=== PATIENT | female | born 1970 | race Caucasian/White ===

== ENCOUNTER 2018-02-28 12:22 | Day surgery (SDC) | payer MEDICARE, BC ==
[~2018-02-28 12:22] MED LIST: CEFAZOLIN 2 GM/50 ML (PMX) 50 ML IVPB; LACTATED RINGER'S 1,000 ML IV*
[2018-02-28] MEDS: INSULIN REGULAR, HUMAN 100 UNIT/1 ML 3ML VIAL SC (14:17)
[2018-02-28] MEDS ORDERED: FENTAnyl 50 MCG/ML VIAL (14:47)
[2018-02-28] MEDS ORDERED: MIDAZOLAM 1 MG/ML 2 ML INJ (14:47)
[2018-02-28] MEDS ORDERED: PROPOFOL 20 ML (14:47)
[2018-02-28] MEDS ORDERED: LIDOCAINE 1% (MPF) 10 ML INJ (14:56)
[2018-02-28] MEDS: ROPIVACAINE 0.5 % 30 ML VIAL (14:59)
[2018-02-28] MEDS ORDERED: METOCLOPRAMIDE 10 MG INJ IV (15:00)
[2018-02-28] MEDS ORDERED: MEPERIDINE 25 MG INJ IV (15:00)
[2018-02-28] MEDS ORDERED: MIDAZOLAM 1 MG/ML 2 ML INJ IV (15:00)
[2018-02-28] MEDS ORDERED: LABETALOL HCL 20MG INJ IV (15:00)
[2018-02-28] MEDS ORDERED: OXYCODONE/ACETAMINOPHEN (5/325) TAB PO ×3 (15:00→16:00)
[2018-02-28] MEDS ORDERED: EPHEDrine SULFATE 50 MG/5 ML SYG IV (15:00)
[2018-02-28] MEDS ORDERED: ONDANSETRON 4 MG INJ IV ×2 (15:00→16:00)
[2018-02-28] MEDS ORDERED: DIPHENHYDRAMINE 50 MG INJ IV (15:00)
[2018-02-28] MEDS ORDERED: FENTAnyl 50 MCG/ML VIAL IV ×3 (15:00)
[2018-02-28] MEDS ORDERED: hydrALAzine 20 MG INJ IV (15:00)
[2018-02-28] MEDS ORDERED: BACITRACIN 0.9 GM OINT (15:11)
[2018-02-28] MEDS ORDERED: CEFAZOLIN 1 GM INJ (15:11)
[2018-02-28] MEDS ORDERED: BACITRACIN/POLYMYXIN 28.35 GM OINT TOP (15:12)
[2018-02-28] MEDS ORDERED: LACTATED RINGER'S 1,000 ML IV (15:33)
[2018-02-28] MEDS ORDERED: HYDROCODONE/APAP (5/325) TAB PO (16:00)
[2018-02-28] MEDS ORDERED: PROCHLORPERAZINE 10 MG INJ IV (16:00)
[2018-02-28] MEDS ORDERED: KETOROLAC 30 MG INJ IV (16:00)
[2018-02-28] MEDS ORDERED: morphine 2 MG INJ IV (16:00)
[2018-02-28] MEDS ORDERED: IBUPROFEN 600 MG TAB PO (16:00)
== END 2018-02-28 17:30 | disposition home or self-care (01) ==
LOC: SDS 12:22
DX: M65.332 Trigger finger, left middle finger (principal); E78.5 Hyperlipidemia, unspecified; E11.9 Type 2 diabetes mellitus without complications; I10 Essential (primary) hypertension; J45.909 Unspecified asthma, uncomplicated; E66.01 Morbid (severe) obesity due to excess calories; Z68.42 Body mass index [BMI] 45.0-49.9, adult
CPT/HCPCS: 26055; 82962; 84703